=== PATIENT | male | born 1995 | race Two or more races ===

== ENCOUNTER 2024-06-22 02:53 | Emergency (ER) | payer MEDICAID, OTHER ==
[~2024-06-22] VITALS: Ht 167.6 cm; Wt 65.0 kg
[2024-06-22] MEDS: QUEtiapine FUMARATE 100 MG TAB PO ONE (06:35)
[2024-06-22 06:40] VITALS: BP 137/67; PULSE 55; RESP 16; TEMP 97.7; O2SAT 98
== END 2024-06-22 06:45 | disposition home or self-care (01) ==
LOC: ER 02:53 → EDBD 02:53 → ER 06:45
DX: F25.9 Schizoaffective disorder, unspecified (principal); F41.9 Anxiety disorder, unspecified; F31.9 Bipolar disorder, unspecified; F17.210 Nicotine dependence, cigarettes, uncomplicated; F15.90 Other stimulant use, unspecified, uncomplicated; Z59.00 Homelessness unspecified

== ENCOUNTER 2025-05-04 10:04 | Emergency (ER) | payer MEDICAID ==
[~2025-05-04] VITALS: Ht 175.3 cm; Wt 68.0 kg
[2025-05-04] MEDS ORDERED: CEPH500C PO (12:08)
[2025-05-04] MEDS ORDERED: NAPR-746 PO (12:08)
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
[2025-05-04 12:19] VITALS: BP 124/67; PULSE 82; RESP 16; TEMP 98.6; O2SAT 99
== END 2025-05-04 12:24 | disposition home or self-care (01) ==
LOC: EDBD 10:04 → ER 10:04
DX: L60.0 Ingrowing nail (principal); F17.210 Nicotine dependence, cigarettes, uncomplicated; F10.90 Alcohol use, unspecified, uncomplicated; F12.90 Cannabis use, unspecified, uncomplicated; F19.90 Other psychoactive substance use, unspecified, uncomplicated; F20.9 Schizophrenia, unspecified; F41.9 Anxiety disorder, unspecified; F32.A Depression, unspecified; Z88.5 Allergy status to narcotic agent; Z59.00 Homelessness unspecified; Z79.899 Other long term (current) drug therapy; Y90.9 Presence of alcohol in blood, level not specified